=== PATIENT | male | born 1990 | race African-American/Black ===

== ENCOUNTER 2019-04-17 09:20 | Emergency (ER) | payer SELFPAY ==
[~2019-04-17] VITALS: Ht 180.3 cm; Wt 95.3 kg
[2019-04-17 09:33] VITALS: BP 140/86
[2019-04-17] MEDS ORDERED: CYCL10TA2 PO (09:49)
[2019-04-17] MEDS ORDERED: LIDO700A21 TP (09:49)
[2019-04-17] MEDS ORDERED: IBUP-1007 PO (09:49)
--- NOTE | 2019-04-17 09:50 | PHYS DOC ---
Past Medical History Past Medical History: No Pertinent History Past Surgical History: No Surgical History Smoking: Cigarettes, Less than 1pk/day Alcohol Use: Heavy Drug Use: Marijuana Adult General Chief Complaint Chief Complaint: BACK PAIN OR INJURY HPI HPI Patient is a 28 year old male who presents with back pain has been ongoing for 2-3 weeks. The patient works at [employer] he said he picked up a case of [employer] wrong at that time. Rates his pain as 7 out of 10 and stabbing. Pain is located to the left lower back, he has not tried any interventions at home. Review of Systems Review of Systems Constitutional: Denies fever or chills [] Eyes: Denies change in visual acuity, redness, or eye pain [] HENT: Denies nasal congestion or sore throat [] Respiratory: Denies cough or shortness of breath [] Cardiovascular: No additional information not addressed in HPI [] GI: Denies abdominal pain, nausea, vomiting, bloody stools or diarrhea [] : Denies dysuria or hematuria [] Musculoskeletal: Reports back pain or joint pain [] Integument: Denies rash or skin lesions [] Neurologic: Denies headache, focal weakness or sensory changes [] Endocrine: Denies polyuria or polydipsia [] Complete systems were reviewed and found to be within normal limits, except as documented in this note. Allergies Allergies Allergies Coded Allergies Type Severity Reaction Last Updated Verified No Known Drug Allergies 06/13/14 No Physical Exam Physical Exam Constitutional: Well developed, well nourished, no acute distress, non-toxic appearance. [] HENT: Normocephalic, atraumatic, bilateral external ears normal, oropharynx moist, no oral exudates, nose normal. [] Eyes: PERRLA, EOMI, conjunctiva normal, no discharge. [] Neck: Normal range of motion, no tenderness, supple, no stridor. [] Cardiovascular:Heart rate regular rhythm, no murmur [] Lungs & Thorax: Bilateral breath sounds clear to auscultation [] Abdomen: Bowel sounds normal, soft, no tenderness, no masses, no pulsatile masses. [] Skin: Warm, dry, no erythema, no rash. [] Back: Tenderness to left lower back, no CVA tenderness. [] Extremities: No tenderness, no cyanosis, no clubbing, ROM intact, no edema. [] Neurologic: Alert and oriented X 3, normal motor function, normal sensory function, no focal deficits noted. [] Psychologic: Affect normal, judgement normal, mood normal. [] EKG EKG [] Radiology/Procedures Radiology/Procedures [] Course & Med Decision Making Course & Med Decision Making Pertinent Labs and Imaging studies reviewed. (See chart for details) Appears to be musculoskeletal in nature. Discussed treatment options with patient. Will give Toradol in ER. Discussed Flexeril at home, along with lidocaine patches and using foam roller exercises. Discussed the risks/benefits and limitations of imaging and the patient declines imaging at this time. Dragon Disclaimer Dragon Disclaimer This electronic medical record was generated, in whole or in part, using a voice recognition dictation system. Departure Departure Impression: Primary Impression: Back injury Disposition: HOME, SELF-CARE Condition: STABLE Referrals: NON,STAFF (PCP) Patient Instructions: Back Exercises, Back Injury Prevention, Back Pain, Adult Additional Instructions: Thank you for visiting [facility]. We appreciate you trusting us with your care. If any additional problems come up don't hesitate to return to visit us. Please follow up with your primary care provider so they can plan additional care if needed and know about the problem that you had. If symptoms worsen come back to the Emergency Department. Any concerning symptoms that start such as chest pain, shortness of Air, weakness or numbness on one side of the body, running high fevers or any other concerning symptoms return to the ER. Please get a foam roller and do exercises per instructions to help your back, take Flexeril, Lidocaine patch, and Ibuprofen as directed. Please fill your medications at any pharmacy and follow the prescription instructions. Scripts Lidocaine (Lidocaine PATCH ) 1 Each Adh..patch 1 EACH TP DAILY PRN for PAIN for 7 Days, #7 PATCH REMOVE AFTER 12 HOURS Prov: WILNER CROWDER APRN 04/17/19 Cyclobenzaprine Hcl (CYCLOBENZAPRINE HCL) 10 Mg Tablet 1 TAB PO TID PRN for MUSCLE SPASMS, #30 TAB Prov: WILNER CROWDER APRN 04/17/19 Ibuprofen (IBUPROFEN) 600 Mg Tablet 600 MG PO PRN Q6HRS PRN for INFLAMMATION for 7 Days, #21 TAB Prov: WILNER CROWDER APRN 04/17/19 Problem Qualifiers Primary Impression: Back injury Encounter type: initial encounter Qualified Codes: S39.92XA - Unspecified injury of lower back, initial encounter WILNER CROWDER APRN Apr 17, 2019 09:50
[2019-04-17] MEDS ORDERED: KETOROLAC 60 MG/2 ML VIAL. IM ONE (10:00)
== END 2019-04-17 10:06 | disposition home or self-care (01) ==
LOC: ER 09:20
DX: S39.92XA Unspecified injury of lower back, initial encounter (principal); F17.210 Nicotine dependence, cigarettes, uncomplicated; X50.0XXA Overexertion from strenuous movement or load, initial encounter; Y93.89 Activity, other specified; Y92.69 Other specified industrial and construction area as the place of occurrence of the external cause; Y99.0 Civilian activity done for income or pay
CPT/HCPCS: 96372; 99283; J1885

== ENCOUNTER 2019-04-23 10:20 | Emergency (ER) | payer OTHER ==
[~2019-04-23] VITALS: Ht 177.8 cm; Wt 99.8 kg
[~2019-04-23 10:20] MED LIST: CYCL10TA2 PO; IBUP-1007 PO; LIDO700A21 TP
[2019-04-23 10:31] VITALS: BP 134/95
--- NOTE | 2019-04-23 10:46 | PHYS DOC ---
Past Medical History Past Medical History: No Pertinent History Past Surgical History: No Surgical History Alcohol Use: Heavy Drug Use: Marijuana Adult General Chief Complaint Chief Complaint: BACK INJURY HPI HPI Patient is a 28 year old AA male who presents to the ER with complaints of continued left low back pain after an injury sustained on 04/16/19 while he was working. Pt states he was lifting a case of 2-liters and felt a pull in his back. He was seen here in the ER on 04/17/19 and prescribed ibuprofen, flexeril, and lidocaine patches. Pt states the pain is no better with these medications and currently rates his pain an 8/10 on the pain scale. The pain is worse when he moves. Pt denies any saddle anesthesia, loss of bowel or bladder control, or lower extremity weakness. Review of Systems Review of Systems Constitutional: Denies fever or chills [] GI: Denies abdominal pain or saddle anesthesia : Denies dysuria or hematuria [] Musculoskeletal: see HPI Neurologic: Denies headache, focal weakness or sensory changes [] Complete systems were reviewed and found to be within normal limits, except as documented in this note. Current Medications Current Medications Current Medications Medications (Trade) Dose Ordered Sig/Lisa Start Time Stop Time Status Last Admin Dose Admin Ketorolac Tromethamine (Toradol 30mg Vial) 30 mg 1X ONCE 04/23/19 11:00 04/23/19 11:01 DC 04/23/19 10:50 30 MG Orphenadrine Citrate (Norflex) 60 mg 1X ONCE 04/23/19 11:00 04/23/19 11:01 DC 04/23/19 10:51 60 MG Allergies Allergies Allergies Coded Allergies Type Severity Reaction Last Updated Verified No Known Drug Allergies 06/13/14 No Physical Exam Physical Exam Constitutional: Well developed, well nourished, no acute distress, non-toxic appearance. [] HENT: Normocephalic, atraumatic, bilateral external ears normal, nose normal. [] Eyes: PERRLA, conjunctiva normal, no discharge. [] Neck: Normal range of motion, no stridor. [] Cardiovascular:Heart rate regular rhythm, no murmur [] Lungs & Thorax: Bilateral breath sounds clear to auscultation [] Skin: Warm, dry, no erythema, no rash. [] Back: No bony tenderness, L lumbar paraspinal TTP, increased pain in left lumbar region with left straight leg lift Extremities: No cyanosis, ROM intact Neurologic: Alert and oriented X 3, normal motor function, normal sensory function, no focal deficits noted. [] Psychologic: Affect normal, judgement normal, mood normal. [] Current Patient Data Vital Signs Vital Signs Date Time Temp Pulse Resp B/P (MAP) Pulse Ox O2 Delivery O2 Flow Rate FiO2 04/23/19 10:31 98.6 68 14 134/95 (108) 100 Room Air 98.6 EKG EKG [] Radiology/Procedures Radiology/Procedures [] Course & Med Decision Making Course & Med Decision Making Pertinent Labs and Imaging studies reviewed. (See chart for details) dx: low back pain Pt given 30 mg IM toradol and 60 mg IM orphenadrine in the ER. Discussed benefits/risks of imaging, declined by pt at this time as there is no bony tenderness. Pt states pain is decreasing after IM injections. Advised pt to stop taking ibuprofen and flexeril. Will write prescriptions for norflex and naproxen. Follow up with work comp doctor for further evaluation and tx of work related injury, return to ER if sx worsen. Patient verbalized an understanding of home care, medications, follow-up, and return to ED instructions and was in agreement with the plan of care. [] Dragon Disclaimer Dragon Disclaimer This electronic medical record was generated, in whole or in part, using a voice recognition dictation system. Departure Departure Impression: Primary Impression: Back injury Additional Impression: Left-sided low back pain without sciatica Disposition: 01 HOME, SELF-CARE Condition: IMPROVED Referrals: NO PCP (PCP) Patient Instructions: Back Pain, Adult, [id number] Additional Instructions: Fill the prescriptions and use as directed, STOP taking ibuprofen and flexeril that were previously prescribed. Follow up with your worker's compensation doctor for further evaluation and treatment of your work related injury, return to ER if you symptoms worsen. Scripts Naproxen (NAPROXEN) 500 Mg Tablet 1 TAB PO BID for 10 Days, #20 TAB 0 Refills Prov: MELY BARRERA APRN 04/23/19 Orphenadrine Citrate (ORPHENADRINE CITRATE) 100 Mg Tablet.er 1 TAB PO BID PRN for PAIN for 10 Days, #20 TAB 0 Refills Prov: MELY BARRERA JIGMAKER 04/23/19 Problem Qualifiers Primary Impression: Back injury Encounter type: subsequent encounter Qualified Codes: S39.92XD - Unspecified injury of lower back, subsequent encounter Additional Impression: Left-sided low back pain without sciatica Chronicity: acute Qualified Codes: M54.5 - Low back pain MELY BARRERA JIGMAKER Apr 23, 2019 10:46
[2019-04-23] MEDS ORDERED: KETOROLAC 30 MG/ML VIAL. IM ONE (11:00)
[2019-04-23] MEDS ORDERED: ORPHENADRINE CITRATE 60 MG/2 ML VIAL. IM ONE (11:00)
[2019-04-23] MEDS ORDERED: ORPH100T PO (11:20)
[2019-04-23] MEDS ORDERED: NAPR-514 PO (11:20)
== END 2019-04-23 11:25 | disposition home or self-care (01) ==
LOC: ER 10:20
DX: S39.92XD Unspecified injury of lower back, subsequent encounter (principal); M54.5 Low back pain; F10.20 Alcohol dependence, uncomplicated; Y90.9 Presence of alcohol in blood, level not specified; X50.9XXD Other and unspecified overexertion or strenuous movements or postures, subsequent encounter
CPT/HCPCS: 96372; 99284; J1885; J2360